=== PATIENT | female | born 1960 | race Caucasian/White ===

== ENCOUNTER → 2024-03-16 | Outpatient (REF) | payer BC, OTHER, MEDICARE ==
[~2024-03-16] MED LIST: ASPI81CH33 PO; B-10TAB2 PO; CALCCAP4 PO; COVI100V IM; ERGO500029 PO; ESTR10TA PO; GABA-284 PO; IRON65TA2 PO; LINZ290C PO; LOSA25TA13 PO; MELA10CA PO; MULT-90 PO; OMEG350C PO; PANT-23 PO; PROBCAP14 PO; REFR0.5D8 OP; REGL5TAB2 PO; [UNRECOGNIZED DRUG - CODE] PO
[2024-03-16 17:34] LABS: CREATININE,RANDOM URINE 20.2 MG/DL
[2024-03-16 17:38] LABS: TOTAL PROTEIN,RANDOM URINE < 6.0 MG/DL (0.0-14.0)
== END ==
LOC: M LAB REF 16:52
PROVIDERS: ATTEND Internal Medicine Nephrology
DX: N18.31 Chronic kidney disease, stage 3a (principal)